=== PATIENT | male | born 1960 | race Caucasian/White ===

== ENCOUNTER 2016-09-22 09:12 | Emergency (ER) | payer OTHER ==
[~2016-09-22] VITALS: Ht 175.3 cm; Wt 114.3 kg
--- NOTE | ~2016-09-22 | EKG ---
[place] [address] [address] [facility] [place] [address] ELECTROCARDIOGRAM REPORT Name: GOAMAYA D [id number] Admission: 09/22/16 Attend Phys: Discharge: 09/22/16 Date of : 60 Report #: [id number] THIS REPORT FOR: //name// [facility] ED Test Date: 2016-09-22 Test Time: 09:42:30 Pat Name: AMAYA STILES Department: Room: Gender: Financial Aid Counselor: Deangelo HOBSON : 1960 Requested By: Sami Kemp Order Number: [id number] MD: Adrian Giles Measurements Intervals [place] Rate: 81 P: 17 [place]: 167 QRS: -45 QRSD: 127 T: 102 QT: 392 QTc: 455 Interpretive Statements Sinus rhythm LVH with IVCD, LAD and secondary repol abnrm No previous ECG available for comparison Electronically Signed On 09-24-2016 8:44:39 CDT by Adrian Giles [email or web address] <ELECTRONICALLY SIGNED> By: Adrian Giles MD 09/24/16 0844 0942 09 Adrian Giles MD /DAGMAR
[~2016-09-22 09:12] MED LIST: ACETAMINOPHEN650 M5 PO; AMBIEN 10 MG TA10 MG PO; BACLOFEN 10 MG10 MG PO; BACTRIM DS TAB1 EACH PO; COLACE 100 MG100 MG PO; CRANBERRY 4001 EAC1 PO; DANTRIUM25 M1 PO; DIOVAN40 MG PO; DOXYCYCLINE 10100 MG PO; ELEMENTAL CALC600 MG PO; FLEXERIL PO; LEVOTHYROXINE0.05 MG PO; LYRICA200 MG PO; METAXALONE800 MG PO; MIRALAX17 GM PO; MIRALAX255 GM PO; MYLANTA 12 OZ355 M1 PO; NEURONTIN 300300 M1 PO; NORCO 5-325 TA1 EACH PO; OMEPRAZOLE 20 M20 MG PO; RANITIDINE 150150 M1 PO; SKELAXIN 800 M800 M1 PO; TRAZODONE 150150 M1 PO
[2016-09-22 10:08] LABS: BASOPHILS 0.9 % (0.0-2.0); EOSINOPHILS 7.9 % (0.0-3.0); HEMATOCRIT 43.9 % (42.0-52.0); LYMPHOCYTES 15.7 % (24.0-44.0); MCH 29.5 pg (26.0-34.0); MCHC 34.2 g/dL (28.0-37.0); MCV 86.1 fL (80.0-100.0); MONOCYTES 7.1 % (1.0-8.0); PLATELET COUNT 216 thou/uL (150-400); POLYS 68.4 % (36.0-66.0); RDW 15.1 % (10.5-14.5); WBC 10.3 thou/uL (4.0-11.0)
[2016-09-22 10:14] LABS: MANUAL DIFF NO
[2016-09-22 10:54] LABS: ANION GAP 11 mmol/L (7-16); BUN 10 mg/dL (7-18); CALCIUM 8.6 mg/dL (8.5-10.1); CHLORIDE 104 mmol/L (98-107); CO2 24 mmol/L (21-32); GLUCOSE 123 mg/dL (74-106); POTASSIUM 3.8 mmol/L (3.5-5.1); SODIUM 139 mmol/L (136-145)
[2016-09-22 11:05] LABS: ALBUMIN 3.5 g/dL (3.4-5.0); ALKALINE PHOSPHATASE 51 U/L (46-116); DIRECT BILIRUBIN 0.1 mg/dL (<0.1-0.3); NT-PRO BRAIN NAT PEPTIDE 184 pg/mL (<300); SGOT 32 U/L (15-37); SGPT 39 U/L (30-65); TOTAL BILIRUBIN 0.7 mg/dL (<0.1-1.0); TOTAL PROTEIN 7.6 g/dL (6.4-8.2); TROPONIN-I < 0.04 ng/mL (<0.04-0.07)
[2016-09-22] MEDS ORDERED: LEVAQUIN 750 M750 MG PO (11:33)
[2016-09-22 11:46] VITALS: BP 130/91
== END 2016-09-22 11:48 | disposition home or self-care (01) ==
LOC: ER 09:12
PROVIDERS: Nurse Practitioner
DX: J18.9 Pneumonia, unspecified organism (principal); Z88.5 Allergy status to narcotic agent

== ENCOUNTER → 2017-02-18 | Outpatient (CLI) | payer OTHER ==
[~2017-02-18] MED LIST changes: +LEVAQUIN 750 M750 MG PO
== END ==
LOC: ULTRA 07:29
DX: K80.80 Other cholelithiasis without obstruction (principal); R16.2 Hepatomegaly with splenomegaly, not elsewhere classified; R60.9 Edema, unspecified

== ENCOUNTER → 2017-08-15 | Outpatient (CLI) | payer OTHER | LOC: ULTRA 06:24 | DX: K76.0 Fatty (change of) liver, not elsewhere classified (principal) ==

== ENCOUNTER → 2018-02-27 | Outpatient (CLI) | payer OTHER | LOC: ULTRA 12:21 | DX: K74.60 Unspecified cirrhosis of liver (principal); N20.0 Calculus of kidney; Z90.49 Acquired absence of other specified parts of digestive tract ==

== ENCOUNTER → 2018-07-09 | Outpatient (CLI) | payer OTHER | LOC: ULTRA 13:09 | DX: K76.0 Fatty (change of) liver, not elsewhere classified (principal); K74.60 Unspecified cirrhosis of liver; N20.0 Calculus of kidney; Z90.49 Acquired absence of other specified parts of digestive tract ==

== ENCOUNTER → 2019-01-21 | Outpatient (CLI) | payer OTHER | LOC: ULTRA 12:58 | DX: K74.60 Unspecified cirrhosis of liver (principal); Z90.49 Acquired absence of other specified parts of digestive tract ==

== ENCOUNTER 2019-09-24 05:18 | Inpatient (IN) | payer OTHER ==
[~2019-09-24] VITALS: Ht 172.7 cm; Wt 131.1 kg
[2019-09-24] VITALS (22 sets, daily range): BP systolic 85–115; BP diastolic 49–75
[~2019-09-24 05:18] MED LIST changes: -BACLOFEN 10 MG10 MG PO; +LIORESAL 10 MG10 MG PO
[2019-09-24] MEDS ORDERED: LYRICA300 MG PO (05:53)
[2019-09-24] MEDS ORDERED: COZAAR 25 MG TA25 MG PO (05:54)
[2019-09-24 05:55] LABS: HEMATOCRIT 45.5 % (42.0-52.0); HEMOGLOBIN 15.1 gm/dL (14.0-18.0); MCHC 33.1 g/dL (28.0-37.0); MCV 84.5 fL (80.0-100.0); PLATELET COUNT 242 thou/uL (150-400); RBC 5.38 mil/uL (4.50-6.00); RDW 15.7 % (10.5-14.5); WBC 7.1 thou/uL (4.0-11.0)
[2019-09-24] MEDS ORDERED: OMEPRAZOLE40 MG PO (05:55)
[2019-09-24] MEDS ORDERED: SPIRONOLACTONE50 MG PO (05:56)
[2019-09-24] MEDS ORDERED: METHOCARBAMOL750 MG PO (05:57)
[2019-09-24] MEDS ORDERED: CIPROFLOXACIN PO (05:58)
[2019-09-24] MEDS ORDERED: CALCIUM500 MG PO (06:01)
[2019-09-24] MEDS ORDERED: cranberry supplement PO (06:02)
[2019-09-24 06:04] LABS: CALCIUM 9.1 mg/dL (8.5-10.1); CREATININE 1.8 mg/dL (0.7-1.3); POTASSIUM 4.3 mmol/L (3.5-5.1)
[2019-09-24] MEDS ORDERED: ALEVE220 M1 PO (06:05)
[2019-09-24] MEDS ORDERED: CIALIS20 MG PO (06:05)
[2019-09-24 06:10] LABS: ALBUMIN 3.8 g/dL (3.4-5.0); DIRECT BILIRUBIN 0.2 mg/dL (<0.1-0.2); TOTAL BILIRUBIN 1.2 mg/dL (<0.1-1.0); TOTAL PROTEIN 8.1 g/dL (6.4-8.2)
[2019-09-24 07:36] LABS: ABSOLUTE NEUTROPHILS 4.3 thou/uL (1.4-8.2); PLATELET ESTIMATE NORMAL
[2019-09-24 08:02] LABS: ICTOTEST (BILI CONFIRMATORY) Negative (Negative); URINE BILIRUBIN 1+ (Negative); URINE BLOOD 3+ (Negative); URINE CLARITY CLOUDY; URINE COLOR YELLOW; URINE GLUCOSE-RANDOM* 3+ (Negative); URINE KETONES TRACE (Negative); URINE LEUKOCYTES-REFLEX 2+ (Negative); URINE NITRITE-REFLEX NEGATIVE (Negative); URINE PROTEIN (DIPSTICK) 2+ (Negative); URINE SPECIFIC GRAVITY >= 1.030 (1.005-1.035); URINE UROBILINOGEN 0.2 E.U./dl (0.2-1.0)
[2019-09-24 08:06] LABS: SQUAMOUS 0-3 Few /LPF (0-3)
[2019-09-24 08:07] LABS: BACTERIA-REFLEX >30 Many /HPF (None Seen); CRYSTALS None Seen /LPF (None Seen); URINE RBC >20 Many /HPF (0-2); URINE WBC-REFLEX >25 Many /HPF (0-5); YEAST-REFLEX Present (None Seen)
[2019-09-24 10:12] LABS: CALCIUM 9.2 mg/dL (8.5-10.1); CREATININE 1.8 mg/dL (0.7-1.3); POTASSIUM 4.4 mmol/L (3.5-5.1)
[2019-09-24 10:16] LABS: ALBUMIN 3.8 g/dL (3.4-5.0); PHOSPHORUS 4.1 mg/dL (2.5-4.9)
--- NOTE | 2019-09-24 13:47 | NUR ---
WOUND CONSULT; REVIEWED THE PICTURES RELATED TO THE PATIENTS CONDITION. BILATERAL BUTTOCKS AREAS LOOK FRAGIALLY HEALED. NO S/S OF INFECTION. RECOMMENDATIONS; BARRIER CREAM DAILY/PRN Q2H TURNS
--- NOTE | 2019-09-24 15:26 | NUR ---
ASSUMED CARE @ 1145 09/24/19, PT ARRIVED ON THE UNIT WITH THE ASSIST OF 1 RN AND 1 STATIONARY ENGINEER REFRIGERATION. PT ARRIVED WITH ZOSYN AND AND INSULIN GTT INFUSING. ASSESSMENTS AND VSS COMPLETE PER ICU PROTOCOL AND DOCUMENTED. DR SEAY HERE TO GALE RN SEEKS CLARIFICATION ON IF HE WANTS ME TO FOLLOW COMPLETE DKA PROTOCOL, HE RELAYS THAT HE IS A MILDER CASE OF DKA AND THAT WE SHOULD DO A MODIFIED PRT WITH Q4H BMP CHECKS BUT HE DID MENTION TO FOLLOW THE FLUID REPLACEMENT PER PRT BUT AT A RATE OF 125ML/HR. THIS RECCOMENDATIONS WERE RELAYED TO DR EMERY. DR HILL ROSALES, HE COMMUNICATES TO MAKE OT NPO AND REST BOWEL. PT EXPRESSES THAT HE WOULD LIKE TO TAKE HIS LYRICA AND METHOCARMABOL, I EXPLAINED TO PT THAT THESE CANNONT BE GIVEN IV, THIS IS RELAYED TO DR EMERY AGAIN, DR EMERY ORDERS VALIUM 2MG BID.
[2019-09-24 18:46] LABS: CALCIUM 7.4 mg/dL (8.5-10.1); POTASSIUM 4.3 mmol/L (3.5-5.1)
--- NOTE | 2019-09-24 22:02 | NUR ---
ASSUMED CARE OF PATIENT AT 1899. PT REMOVED IV. IV REPLACED. 2129 NO URINE OUTPUT SO FAR, CMM PROGRAMMER NOTIFIED, ORDER OBTAINED FOR CATHETER FOR STRICT I&O. GUSTAFSON PLACED WITH NO ISSUES, 200 ML OUT. WILL CONTINUE TO MONITOR OUTPUT HOURLY.
[2019-09-25] VITALS (10 sets, daily range): BP systolic 101–141; BP diastolic 55–88
[2019-09-25 04:07] LABS: GLYCOHEMOGLOBIN (HGB A1C) 10.6 % (4.8-5.6)
[2019-09-25 04:15] LABS: ALBUMIN 2.6 g/dL (3.4-5.0); CALCIUM 7.5 mg/dL (8.5-10.1); CREATININE 0.9 mg/dL (0.7-1.3); POTASSIUM 3.9 mmol/L (3.5-5.1)
--- NOTE | 2019-09-25 07:23 | NUR ---
Assumed care at 0700. PT is alert and oriented x4. Physical assessment was performed see chart for further details. VSS. PT denies any pain or nausea. PT requested to get a bath today "before they send me somewhere else." RN verbalized understanding and stated that would be accomplished today. High fall risk precautions are in place. Call light is wihtin reach. RN will continue to monitor.
--- NOTE | 2019-09-25 10:05 | NUR ---
PT worked with OT and physical therapy. After they left the room PT called RN to bedside and stated, "they made me sit up in this chair. I guess they think they know more about what is better for my ass than me." RN educated PT on the provider's order for activity and the importance of changing positions, exercising, and getting out of bed. PT verbalized understanding but stated, "my ass hurts, thats why I've been in bed for two months." PT refused to stay sitting in the chair so RN assisted PT back to bed. Fall precautions in place. PT tolerated activity well and was placed in bed then repositioned onto his left side. Call light is within reach. Will continue to monitor.
--- NOTE | 2019-09-25 10:22 | HC ---
[facility] [address] [place] [address] CONSULTATION Name: AMAYA STILES Room #: 244-P [facility] IN ..#: [id number] Admission: 09/24/19 Attend Phys: Bere Edmond MD Discharge: Date of : 60 Report #: [id number] THIS REPORT FOR: cc: [facility] - Clinic physician unknown [facility] - Clinic physician unknown Jameson Cervantes MD ~ CC: Bere RODRIGUEZ unknown DATE OF SERVICE: 09/24/2019 ENDOCRINE CONSULTATION NOTE CONSULTING PHYSICIAN: Dr. Edmond. REASON FOR CONSULTATION: DKA, uncontrolled type 2 diabetes mellitus. 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 The patient had issues in the past with small-bowel obstruction and recalls having had major small bowel and large bowel resection surgeries done in the past for this purpose. He notes that about 48 hours prior to his presentation, he started developing abdominal discomfort, abdominal distention as well as bouts of nausea and vomiting. On arrival, the patient was found to have severe hyperglycemia and changes of DKA and was subsequently admitted for further care and monitoring. The patient notes that he was first diagnosed with type 2 diabetes mellitus in 2003 shortly after his accident where his bedridden state and progressive weight gain had eventually culminated in type 2 diabetes mellitus. However, he notes that a bariatric procedure done in 2011 essentially cured diabetes and he has never needed to be on treatment since then. He believes that his hemoglobin A1c is checked annually or semiannually and that his last few readings were in the 5 range. Again, he is not actively on any form of blood glucose lowering therapy. The patient knows that he has been more immobile than usual due to active difficulties with decubitus ulcers and that he has been sleeping far longer than he would normally during these 2 months. The patient does not have any blood glucose data as he does not monitor blood glucose at home. The patient is not aware of issues pertaining to diabetic retinopathy, nephropathy or neuropathy, but he does have peripheral neuropathy issues pertaining to his spinal injury and paraplegia. REVIEW OF SYSTEMS: [address] [address] CONSULTATION Name: AMAYA STILES Benjie Room #: 244-P [facility] IN ..#: [id number] Admission: 09/24/19 Attend Phys: Bere Edmond MD Discharge: Date of : 60 Report #: [id number] CONSTITUTIONAL: Fatigue, tiredness, but not fever or chills. HEENT: Negative for sore throat, sinus pain or ear drainage. PULMONARY: Negative for shortness of breath, cough or hemoptysis. CARDIAC: Negative for chest pain, palpitations, syncope or presyncope. GASTROINTESTINAL: Noted for abdominal distention, abdominal discomfort, nausea, vomiting. NEUROLOGY: Baseline difficulties with neuropathy and paraplegia, but no seizure activity or severe frequent headaches. SKIN: Active ongoing issues with sacral decubitus ulcers. Otherwise, his review of systems noncontributory unless mentioned in HPI. PAST MEDICAL HISTORY: 1. Type 2 diabetes mellitus as outlined in HPI. 2. Hypertension. 3. GERD. 4. Obesity. 5. Peripheral neuropathy. 6. Obstructive sleep apnea. 7. Paraplegia following a horse riding accident in 2003. 8. Prior multiple issues with a small-bowel obstruction. 9. Hypothyroidism. PAST SURGICAL HISTORY: 1. Previous bowel resection. 2. Laparoscopic cholecystectomy. 3. Appendectomy. 4. Gastric bypass procedure. OUTPATIENT MEDICATIONS: 1. Include levothyroxine 50 mcg daily. 2. Baclofen 100 mg t.i.d. 3. Trazodone at bedtime. 4. Lyrica 300 mg t.i.d. 5. Losartan 25 mg b.i.d. 6. Omeprazole 1 capsule b.i.d. 7. Spironolactone 50 mg b.i.d. 8. Methocarbamol 750 mg t.i.d. 9. Calcium carbonate daily. 10. Cialis 20 mg daily. FAMILY HISTORY: Noncontributory. SOCIAL HISTORY: The patient lives by himself, but describes a close relationship with his girlfriend who checks on him as well as having home health services. He is disabled and does not currently work. He has never been a smoker and drinks alcohol only rarely. [address] [address] CONSULTATION Name: AMAYA STILES Room #: 244-P [facility] IN ..#: [id number] Admission: 09/24/19 Attend Phys: Bere Edmond MD Discharge: Date of : 60 Report #: [id number] ALLERGIES: MORPHINE. PHYSICAL EXAMINATION: GENERAL: male patient who is not in apparent pain or distress, lying in bed. VITAL SIGNS: Blood pressure 115/70 mmHg, heart rate is 93 beats per minute, respiration 18 per minute, temperature is 36.4 degrees. CONSTITUTIONAL: The patient is lying in bed, seems comfortable, not in apparent distress. HEENT: Anicteric sclerae. Intact extraocular motions. NECK: Supple, without JVD, carotid bruits or lymphadenopathy. I do not appreciate thyromegaly. CHEST: Noted for moderate air entry bilaterally with distant breath sounds, scattered rales, but no wheezes or crackles. HEART: Regular rate and rhythm. No murmurs, no gallops. ABDOMEN: Obese, but soft, lax. No guarding. Sluggish bowel sounds. EXTREMITIES: Lower extremity exam, trace edema. Diminished sensation. Faint pedal pulses. NEUROLOGIC: Awake, alert and oriented to time, place and person. The remainder of his examination is noted for paraplegia. PSYCHIATRIC: Interactive. Normal mood and affect. LABORATORY RESULTS: On arrival, blood glucose was 325 then 310 by fingerstick. Sodium 131, potassium 4.4, chloride 94, CO2 19, anion gap 18, BUN 25, creatinine 1.8, glucose by blood draw was as high as 487, AST 25, lipase 13, total bilirubin 1.2, direct bilirubin 0.2, calcium 9.2, phosphorus 4.1, alkaline phosphatase 64, ALT 35, total protein 8.1, albumin 3.8, EGFR 39. Lactic acid 1.8. Troponin negative. White blood count 7.1, hemoglobin 15.1, hematocrit 45.5, platelets 242. ASSESSMENT AND PLAN: 1. Diabetic ketoacidosis. The patient presents with changes that are consistent with early diabetic ketoacidosis judging by his presentation, as well as his metabolic abnormalities. The patient was counseled at length about the pathogenesis of the situation as well as the importance of early effective intervention with intravenous fluids as well as intravenous insulin. I will start the patient on IV insulin therapy as per the [facility] DKA protocol. Blood glucose monitoring hourly as well as periodic electrolyte monitoring will continue so as to guide further therapeutic decisions including when it would be suitable to transition the patient back to subcutaneous therapy and/or oral therapy for diabetes mellitus. 2. Type 2 diabetes mellitus. As noted above, the patient has a longstanding history of type 2 diabetes mellitus, which has reportedly resolved following his gastric bypass surgery several years ago. However, there does not seem to be adequate data to fully establish this notion of resolution. I will check a [facility] [address] [place] [address] CONSULTATION Name: AMAYA STILES Room #: 244-P [facility] IN ..#: [id number] Admission: 09/24/19 Attend Phys: Bere Edmond MD Discharge: Date of : 60 Report #: [id number] hemoglobin A1c to get a better assessment for his overall level of control over the past few months. His therapeutic needs following the conclusion of DKA therapy will be determined based on his clinical outlook as well as recorded insulin needs later in his hospital stay. I stressed the importance of adequate glycemic control in the prevention of long-term diabetic complications which he understands well. 3. Hypothyroidism. The patient is known to have hypothyroidism and is maintained on levothyroxine 50 mcg daily. He is clinically euthyroid. I will obtain TSH and free T4 levels to further ascertain the adequacy of this dose. 4. Hypertension. The patient's level of blood pressure control is adequate on the current regimen, he is to continue with the same. I certainly appreciate this consultation by Dr. Edmond. <ELECTRONICALLY SIGNED> By: Jameson Cervantes MD 09/25/19 1022 1319 1419 Jameson Cervantes MD /nt
--- NOTE | 2019-09-25 14:11 | NUR ---
INITIAL ASSESSMENT: Received consult. GREGORIO reviewed chart and spoke with attending physician. Pt was admitted from home due to DKA/SBO. Pt is in ICU and may transfer out of ICU when a bed is available. Pt with hx of paraplegia and is w/c bound at home. Pt is NPO per surgery at this time. SBFT today. No plans for surgical intervention. GREGORIO spoke with pt via phone. Introduced role of GREGORIO. Pt is alert/orientated x 4. Pt states he lives at home with his girlfriend, Brisa. Prior to admission, pt was receiving in home services through [facility]. Pt states he goes to [facility] for his primary care. Pt's plan is to return home when medically stable. Pt states his family will be able to provide transportation home. GREGORIO placed call to Brisa ([phone]). Number is not in service. GREGORIO spoke with pt's dtr, Lacey, via phone to provide update. GREGORIO left voice message for [facility] ([phone]). GREGORIO is following to assist as needed with discharge planning.
--- NOTE | 2019-09-25 14:59 | NUR ---
RN gave report to another RN on at 1445. She verbalized understanding PT was notified of transfer and was agreeable. RN also notified the x-ray clinicians as PT is currently doing a small bowel series. They stated understanding. High fall precautions are in place. Will continue to monitor.
--- NOTE | 2019-09-25 18:00 | NUR ---
ARRIVED ON FLOOR AROUND 1700 FROM ICU. PT ALERT AND ORIENTED. SITTING IN HIS WHEELCHAIR. ONLY C/O BEING THIRSTY. PT NPO. GUSTAFSON DRAINING. HAVING BMS. PIV INFUSING WITHOUT PROBLEMS. PAGED DR ALEJANDRE RE: LAST ABDOMINAL XRAY BEING DONE AND PT REQUESTING ICE CHIPS. WILL AWAIT FURTHER ORDERS. CONTINUE TO MONITOR
--- NOTE | 2019-09-26 02:53 | NUR ---
patient aox4 makes needs known. pain controlled this shift. patient turned q 2 hours. patient did not have any bowel movement this shift. cath care done this shift. barrier cream applied as needed. patient in bed asleep at this time breathing regular and unlaboured.
[2019-09-26 03:32] VITALS: BP 123/66
[2019-09-26 05:25] LABS: ALBUMIN 2.8 g/dL (3.4-5.0); CALCIUM 7.6 mg/dL (8.5-10.1); PHOSPHORUS 2.9 mg/dL (2.5-4.9); POTASSIUM 3.3 mmol/L (3.5-5.1)
[2019-09-26 07:21] VITALS: BP 115/60
--- NOTE | 2019-09-26 12:11 | NUR ---
Received awake on bed. Due medications given as prescribed, able to swallow meds w/o difficulty. On room air. Vital signs stable. On clear liquids then may advance to full liquids once tolerating well; no nausea, no vomiting and no abdominal pain noted. A+Ox4. On blood sugar monitoring- taken and recorded accordingly; with sliding scale insulin ordered- given as prescribed. With pro in place- draining well; output measured and recorded. With sore on his buttocks- barrier cream applied as ordered; pt turned on his sides frequently. With NS at 75cc/hr, infusing well at R AC. Assisted in ADLs. Pt asked if ok to resume home meds- Dr Edmond informed and orders made. Noticed pt had red rashes from his chest to his legs, no complaints of itchiness- Dr Edmond informed and skin assessed by physician- no new orders made- to observe skin. Pt very keen to go home tomorrow- physician aware; with verbal orders to discontinue IVF and restart Methocarbamol- orders made. To continue monitoring patient.
[2019-09-26 14:13] VITALS: BP 140/48; BP 1408/48
[2019-09-26 20:02] VITALS: BP 131/69
--- NOTE | 2019-09-27 02:47 | NUR ---
PATIENT AOX4 MAKES NEEDS KNOWN. PATIENT WOKE UP IN THE MIDDLE OF THE NIGHT TOLD THIS NURSE HE HAS BEEN HAVING WEIRD DREAMS. PAIN CONTROLLED THIS SHIFT. PATIENT TURNED Q 2 HOURS. PATIENT HAD A BED BATH THIS SHIFT.CATH CARE DONE THIS SHIFT. PATIENT IS ON FULL LIQUID AND TOLERATED WELL. FALL PRECAUTION IN PLACE. PATIENT IN BED ASLEEP AT THIS TIME BREATHING REGULAR AND UNLABOURED.
[2019-09-27 03:52] VITALS: BP 134/77
[2019-09-27 07:05] VITALS: BP 124/75
[2019-09-27 07:50] LABS: CALCIUM 8.1 mg/dL (8.5-10.1); CREATININE 0.9 mg/dL (0.7-1.3); PHOSPHORUS 2.9 mg/dL (2.5-4.9)
[2019-09-27] MEDS ORDERED: JANUMET 50-1,01 EACH PO (10:56)
[2019-09-27] MEDS ORDERED: [UNRECOGNIZED DRUG - SUPPLY] TOP (11:01)
[2019-09-27 11:18] VITALS: BP 124/75
--- NOTE | 2019-09-27 15:28 | NUR ---
Assumed patient care at 0715. Vital signs stable, LSCTA (diminished), Normal Sinus Rythym, abdomen somewhat distended (he denies pain and/or abdominal discomfort). Patient had a small, loose BM (time unknown); he consumed all of his Carb Controlled Lunch without any nausea and/or vomiting. Blood sugar was 112 at 0702 and 200 at 1152. He recieved 3 Units of Lispro per sliding scale. Patient verbalized an understanding to all Discharge Instructions before signing paperwork. Girlfriend met him outside. Patient left with all belongings and Discharge Paperwork at 1530. Pictures taken of wounds to buttocks which have almost completely healed.
== END 2019-09-27 15:55 | disposition home or self-care (01) | DRG 388 ==
LOC: ER 05:18 → 4W 10:05 → EROBS 10:05 → ICU 11:30 → 4W 09-25 17:20
PROVIDERS: Emergency Medicine; Internal Medicine; ADMIT Hospitalist
DX: K56.609 Unspecified intestinal obstruction, unspecified as to partial versus complete obstruction (principal); E11.10 Type 2 diabetes mellitus with ketoacidosis without coma; N39.0 Urinary tract infection, site not specified; N17.9 Acute kidney failure, unspecified; E87.1 Hypo-osmolality and hyponatremia; G82.20 Paraplegia, unspecified; Z68.41 Body mass index [BMI] 40.0-44.9, adult; E66.9 Obesity, unspecified; E03.9 Hypothyroidism, unspecified; I10 Essential (primary) hypertension; K21.9 Gastro-esophageal reflux disease without esophagitis; E11.42 Type 2 diabetes mellitus with diabetic polyneuropathy; N20.0 Calculus of kidney; G47.33 Obstructive sleep apnea (adult) (pediatric); Z79.4 Long term (current) use of insulin; Z88.5 Allergy status to narcotic agent; Z90.49 Acquired absence of other specified parts of digestive tract; Z98.84 Bariatric surgery status
CPT/HCPCS: 10045; 10047; 10078

== ENCOUNTER 2019-11-14 20:54 | Inpatient (IN) | payer OTHER ==
[~2019-11-14] VITALS: Ht 170.2 cm; Wt 128.7 kg
--- NOTE | ~2019-11-14 | EMS ---
[address] [address] EMS Patient Care Report Name: AMAYA STILES Room #: REG [facility]IER Painting#: [id number] Admission: 11/14/19 Attend Phys: Discharge: Date of : 60 Report #: [id number] THIS REPORT FOR: //name// Report Transmitted: 11/14/2019 20:47 EMS Care Summary [place], [place]/[facility] Incident [id number] @ 11/14/2019 19:53 Incident Location [address] [place] [address] 428 Patient AMAYA STILES Male, 59 Years 1960 Patient Address [address] [place] [address] [address] [place] [address] Patient History Diabetes,Hypertension (HTN),Urinary Tract Infection (UTI),Paraplegia, Patient Allergies No known allergies, Patient Medications Vitamin D, Calcium, Citrucel, Imodium, Vitamin B12, Tadalafil, Ropinirole, Levothyroxine, Losartan, Trazodone, Tamsulosin, Omeprazole, Methocarbamol, Spironolactone, Loratadine, Baclofen, Ibuprofen, Chief Complaint CONFUSION/FEVER Disposition Transported No Lights/Wolf Dispatch Reason Sick Person Transported To [facility] Narrative DISPATCHED TO A SICK. ARRIVED ON SCENE OF 4TH STORY APARTMENT TO BE GREETED BY [address] [address] EMS Patient Care Report Name: AMAYA STILES Room #: REG [facility] Painting#: [id number] Admission: 11/14/19 Attend Phys: Discharge: Date of : 60 Report #: [id number] PATIENT'S GIRLFRIEND WHO STATED THAT HE HAS A FEVER IS REALLY WARM TO THE TOUCH AND HAS BEEN MORE CONFUSED AND LETHARGIC TODAY THAN HE NORMALLY IS. SHE ALSO SAID THAT HE WAS ON ANTIBIOTICS FOR A RECENT UTI, BLADDER INFECTION, AND BOWEL IMPACTION THAT HE HAD BEEN IN THE HOSPITAL FOR. WHEN GREETED PATIENT IMMEDIATELY SAID THAT HE DID NOT WANT TO GO TO THE HOSPITAL BUT HE DID AGREE TO LET EMS CHECK HIS VITALS ON SCENE. PATIENT SAID THAT HE IS NOT HURTING ANYWHERE NEW AND HE DID NOT FEEL ILL. HIS VITALS WERE OBTAINED AND HE WAS FOUND TO BE IN A TACHYCARDIC RHYTHM AND HE WAS PLACED ON A 12 LEAD. WHEN ANSWERING QUESTIONS PATIENT SOMETIMES TOOK 2 OR THREE TIMES TO COME UP WITH THE CORRECT ANSWER. EMS TRIED TO CONVINCE PATIENT TO GO TO THE HOSPITAL AND WHEN HE STILL REFUSED MEDICAL CONTROL WAS CALLED. WHILE IN RADIO CONTACT WITH MEDICAL CONTROL PATIENT AGREED TO LET EMS BRING HIM TO THE HOSPITAL. HE WAS ROLLED ONTO A MEGAMOVER, LIFTED TO THE COT, SECURED WITH STRAPS, AND MOVED TO THE AMBULANCE. PATIENT'S VITALS WERE REOBTAINED AND HE WAS PLACED BACK ON THE MONITOR. ANOTHER 12 LEAD WAS OBTAINED DUE TO ARTIFACT IN THE PREVIOUS ONES. AN IV WAS STARTED. PATIENT'S LUNGS WERE AUCULTATED AND HE WAS ADMINISTERED NORMAL SALINE. PATIENT WAS PLACED ON OXYGEN AND HE WAS TRANSPORTED TO THE HOSPITAL WITH VITALS AND INTERVENTIONS MONITORED ENROUTE. PATIENT REMAINED CONFUSED ENROUTE BUT CONTINUED TO ANSWER QUESTIONS WHEN PROMPTED. UPON ARRIVAL AT THE HOSPITAL PATIENT WAS MOVED INTO ED ROOM 5 ON THE COT AND LIFTED OVER TO THE HOSPITAL BED. PATIENT CARE WAS TURNED OVER TO ED NURSING STAFF. Initial Vitals @20:13P: 60,SpO2: 93,CO Suspected: false @20:15P: 49,BP: 127/76,SpO2: 92, @20:17P: 125,CO: 5,SpO2: 76, @20:32P: 150,CO: 5,SpO2: 92, @20:16P: 192, @20:04P: 153,CO: 8,SpO2: 92, @20:28P: 143,CO: 3,SpO2: 94, @20:13P: 147,SpO2: 94, @20:14P: 65,CO: 7,SpO2: 92,CO Suspected: false @20:36P: 184,SpO2: 92,CO Suspected: false @20:45P: 152,CO: 5,SpO2: 92, @20:42P: 186,CO: 5,SpO2: 94, @20:35P: 116,SpO2: 80, @20:38P: 147,BP: 122/73,CO: 4,SpO2: 91, @20:05P: 151,R: 16,BP: 124/76,Pain: 0/10,GCS: 14,Glucose: 150,SpO2: 92,Revised Trauma: 12, @20:46P: 180,R: 16,BP: 141/86,Pain: 0/10,GCS: 14,Temp: 99.5F,SpO2: 92,Revised Trauma: 12, Assessments @20:03MENTAL:Confused,Person Oriented,Event Oriented,Time Oriented,Place Oriented,SKIN:Hot,HEENT:Head/Face: No Abnormalities,Neck/Airway: No Abnormalities,LUNG SOUNDS:General: No Abnormalities,Left Upper: No [facility] [address] [place] [address] EMS Patient Care Report Name: AMAYA STILES Room #: REG [facility]#: [id number] Admission: 11/14/19 Attend Phys: Discharge: Date of : 60 Report #: [id number] Abnormalities,Right Upper: No Abnormalities,Left Lower: No Abnormalities,Right Lower: No Abnormalities,ABDOMEN:General: No Abnormalities,Left Upper: No Abnormalities,Right Upper: No Abnormalities,Left Lower: No Abnormalities,Right Lower: No Abnormalities,PELVIS//GI:No Abnormalities,EXTREMITIES:Left Leg: Paralysis,Right Leg: Paralysis,Capillary Refill: Right Upper: < 2 Sec,Left Arm: No Abnormalities,Right Arm: No Abnormalities,PULSE:Radial: 2+ Normal,NEURO:No Abnormalities, Impression Sepsis/Septicemia Procedures @20:03ALS AssessmentResponse: UnchangedSucceeded@20:043-Lead ECGResponse: UnchangedSucceeded@20:38Normal Saline (.9% NaCl) 400cc (18 ga) Site: Antecubital-RightResponse: UnchangedSucceeded@20:1312-Lead ECG@20:1412-Lead ECG@20:3612-Lead ECG@20:40Oxygen FlowRate: 3 Device: Nasal Cannula (NC) Response: ImprovedSucceeded Timeline 19:49,Call Received 19:49,Dispatch Notified 19:53,Dispatched 19:54,En Route 20:00,On Scene 20:03,At Patient 20:03,ALS Assessment,Response: UnchangedSucceeded, 20:04,3-Lead ECG,Response: UnchangedSucceeded, 20:04,BP: / M,PULSE: 153,RR: R,SPO2: 92 Ox,ETCO2: ,BG: ,PAIN: ,GCS: , 20:05,BP: 124/76 M,PULSE: 151,RR: 16 R,SPO2: 92 Ox,ETCO2: ,B,PAIN: 0,GCS: 14, 20:13,12-Lead ECG, 20:13,BP: / M,PULSE: 60,RR: R,SPO2: 93 Ox,ETCO2: ,BG: ,PAIN: ,GCS: , 20:13,BP: / M,PULSE: 147,RR: R,SPO2: 94 Ox,ETCO2: ,BG: ,PAIN: ,GCS: , 20:14,12-Lead ECG, 20:14,BP: / M,PULSE: 65,RR: R,SPO2: 92 Ox,ETCO2: ,BG: ,PAIN: ,GCS: , 20:15,BP: 127/76 M,PULSE: 49,RR: R,SPO2: 92 Ox,ETCO2: ,BG: ,PAIN: ,GCS: , 20:16,BP: / M,PULSE: 192,RR: R,SPO2: Ox,ETCO2: ,BG: ,PAIN: ,GCS: , 20:17,BP: / M,PULSE: 125,RR: R,SPO2: 76 Ox,ETCO2: ,BG: ,PAIN: ,GCS: , 20:28,BP: / M,PULSE: 143,RR: R,SPO2: 94 Ox,ETCO2: ,BG: ,PAIN: ,GCS: , 20:32,BP: / M,PULSE: 150,RR: R,SPO2: 92 Ox,ETCO2: ,BG: ,PAIN: ,GCS: , 20:35,BP: / M,PULSE: 116,RR: R,SPO2: 80 Ox,ETCO2: ,BG: ,PAIN: ,GCS: , 20:36,12-Lead ECG, 20:36,BP: / M,PULSE: 184,RR: R,SPO2: 92 Ox,ETCO2: ,BG: ,PAIN: ,GCS: , 20:38,Normal Saline (.9% NaCl) 400cc 18 ga Site: Antecubital-Right,Response: UnchangedSucceeded, 20:38,BP: 122/73 M,PULSE: 147,RR: R,SPO2: 91 Ox,ETCO2: ,BG: ,PAIN: ,GCS: , [facility] [address] [place] [address] EMS Patient Care Report Name: AMAYA STILES Room #: [facility]#: [id number] Admission: 11/14/19 Attend Phys: Discharge: Date of : 60 Report #: [id number] 20:39,Depart Scene 20:40,Oxygen FlowRate: 3 Device: Nasal Cannula (NC) Response: ImprovedSucceeded, 20:42,BP: / M,PULSE: 186,RR: R,SPO2: 94 Ox,ETCO2: ,BG: ,PAIN: ,GCS: , 20:45,BP: / M,PULSE: 152,RR: R,SPO2: 92 Ox,ETCO2: ,BG: ,PAIN: ,GCS: , 20:46,BP: 141/86 M,PULSE: 180,RR: 16 R,SPO2: 92 Ox,ETCO2: ,BG: ,PAIN: 0,GCS: 14, 20:50,At Destination 21:16,Call Closed Disclaimer v1.1 Copyright 2020 [employer] This EMS Care Summary contains data elements from the applicable legal record (which may be displayed differently). It is designed to provide pertinent information for the following purposes: continuity of care, clinical quality, and state data reporting. The complete legal record is available to ED staff and administrators of the receiving hospital in [employer] Patient Tracker. All data is provided "as is."
[~2019-11-14 20:54] MED LIST changes: +ALEVE220 M1 PO; +CALCIUM500 MG PO; +CIALIS20 MG PO; +CIPROFLOXACIN PO; +COZAAR 25 MG TA25 MG PO; +JANUMET 50-1,01 EACH PO; +LYRICA300 MG PO; +METHOCARBAMOL750 MG PO; +OMEPRAZOLE40 MG PO; +SPIRONOLACTONE50 MG PO; +[UNRECOGNIZED DRUG - SUPPLY] TOP; +cranberry supplement PO
[2019-11-14 21:03] VITALS: BP 113/62
[2019-11-14 21:25] LABS: URINE BILIRUBIN NEGATIVE (Negative); URINE BLOOD 2+ (Negative); URINE CLARITY CLOUDY; URINE COLOR YELLOW; URINE GLUCOSE-RANDOM* NEGATIVE (Negative); URINE KETONES 1+ (Negative); URINE NITRITE-REFLEX NEGATIVE (Negative); URINE PROTEIN (DIPSTICK) 2+ (Negative); URINE SPECIFIC GRAVITY 1.025 (1.005-1.035); URINE UROBILINOGEN 0.2 E.U./dl (0.2-1.0)
[2019-11-14 21:33] LABS: URINE LEUKOCYTES-REFLEX 3+ (Negative)
[2019-11-14 21:35] LABS: CASTS None Seen /LPF (None Seen); MUCUS 0-3 Light strn/LPF (None Seen); SQUAMOUS None Seen /LPF (0-3)
[2019-11-14 21:36] LABS: BACTERIA-REFLEX 1-9 Few /HPF (None Seen); CRYSTALS None Seen /LPF (None Seen); URINE RBC 3-10 Few /HPF (0-2); URINE WBC-REFLEX >25 Many /HPF (0-5); YEAST-REFLEX Present (None Seen)
[2019-11-14 22:13] LABS: HEMATOCRIT 43.4 % (42.0-52.0); MCH 27.6 pg (26.0-34.0); MCHC 32.2 g/dL (28.0-37.0); MCV 85.7 fL (80.0-100.0); PLATELET COUNT 221 thou/uL (150-400); RBC 5.07 mil/uL (4.50-6.00); RDW 17.6 % (10.5-14.5); WBC 14.7 thou/uL (4.0-11.0)
[2019-11-14 22:40] LABS: ABSOLUTE NEUTROPHILS 12.1 thou/uL (1.4-8.2); ANISOCYTOSIS 1+
[2019-11-14 22:44] LABS: ANION GAP 13 mmol/L (7-16); BUN 22 mg/dL (7-18); CALCIUM 8.8 mg/dL (8.5-10.1); CHLORIDE 100 mmol/L (98-107); CO2 16 mmol/L (21-32); CREATININE 1.6 mg/dL (0.7-1.3); GLUCOSE 137 mg/dL (74-106); POTASSIUM 5.8 mmol/L (3.5-5.1); SODIUM 129 mmol/L (136-145)
[2019-11-14 22:54] LABS: ALBUMIN 3.1 g/dL (3.4-5.0); MAGNESIUM 1.3 mg/dL (1.8-2.4); SGOT 18 U/L (15-37); SGPT 23 U/L (30-65); TOTAL BILIRUBIN 0.8 mg/dL (0.2-1.0); TOTAL PROTEIN 7.8 g/dL (6.4-8.2); TROPONIN-I <0.06 ng/mL (<0.06)
--- NOTE | 2019-11-14 23:15 | NUR ---
[facility] [phone] CELL [phone] THIS IS DAUGHTER
--- NOTE | 2019-11-14 23:16 | NUR ---
PERMISSION TO TREAT OBTAINED FROM SOFIA LOYOLA
[2019-11-14 23:44] VITALS: BP 106/52
[2019-11-15] VITALS (35 sets, daily range): BP systolic 85–133; BP diastolic 30–83
[2019-11-15 01:35] LABS: BE(vivo) -12.3 mmol/L (-2 to +3); HCO3 12.1 mmol/L (22.0-26.0); PO2 101.7 mmHg (80.0-100.0); sO2 97.2 % (92.0-98.0)
[2019-11-15 01:36] LABS: PCO2 24.9 mmHg (35.0-45.0); pH 7.304 (7.360-7.450)
--- NOTE | 2019-11-15 04:04 | NUR ---
PT ADMITTED FROM ED FOR POSSIBLE SEPSIS. ARRIVE ON UNIT ABOUR 2300. PT AOX4 DENIES PAIN BUT DRIFTS INTO SLEEP AND ALSO IN RESPITORY DISTRESS. PT TACHYCARDIC SUSTAINING HR >140 AND FEVER OF 102.2 AXILLARY. RAPID ACTIVATE. TAPER OPERATOR ORDERED TO TANSFER PATIENT TO ICU.
[2019-11-15 05:33] LABS: BUN 18 mg/dL (7-18); CHLORIDE 110 mmol/L (98-107); CO2 16 mmol/L (21-32); CREATININE 1.7 mg/dL (0.7-1.3); GLUCOSE 103 mg/dL (74-106); TROPONIN-I <0.06 ng/mL (<0.06)
[2019-11-15 05:34] LABS: ANION GAP 20 mmol/L (7-16); POTASSIUM 3.3 mmol/L (3.5-5.1); SODIUM 146 mmol/L (136-145)
[2019-11-15 05:37] LABS: CALCIUM 5.6 mg/dL (8.5-10.1)
[2019-11-15 05:38] LABS: MAGNESIUM 0.8 mg/dL (1.8-2.4)
[2019-11-15 06:20] LABS: ALBUMIN 1.8 g/dL (3.4-5.0); DIRECT BILIRUBIN 0.1 mg/dL (<0.1-0.2); TOTAL BILIRUBIN 0.8 mg/dL (0.2-1.0); TOTAL PROTEIN 5.4 g/dL (6.4-8.2)
--- NOTE | 2019-11-15 06:51 | NUR ---
ASSUMED CARE OF PATIENT FROM . TACHYCARDIC, FEBRILE, AMS. Manjula LINDSAY ON UNIT, ORDERS RECIEVED. TYLENOL, FLUID BOLUS, ABX GIVEN. VITALS IMPROVED. PATIENT STILL CONFUSED AT TIMES. CRITICAL RESULTS CALLED.
[2019-11-15 07:21] LABS: AMP/METHAMP Negative (Negative); BARBITURATES Negative (Negative); BENZODIAZEPINES Negative (Negative); COCAINE Negative (Negative); METHADONE Negative (Negative); OPIATES Negative (Negative); PCP Negative (Negative)
--- NOTE | 2019-11-15 14:54 | NUR ---
VASCULAR ACCESS CONSULTED FOR PICC LINE. PT'S LABS,MEDS,HISTORY,ORDER AND CONSENT VERIFIED. UPON ASSESSMENT, PT UNABLE TO EXTEND ARMS TO USE USG TO FIND VESSELS. DISCUSSED CVAD WITH BENEFITS AND RISK TO PT, HE VERBALIZED UNDERSTANDING AND CONSENT FOT GIULIA. RIJ WIDELY PATENT WITH USG, 4FR DL POWER PICC TRIMMED TO 25CM INSERTED TO 7CM EXTERNAL. STAT CXR ORDERED. PT TOLERATED WELL
--- NOTE | 2019-11-15 14:58 | NUR ---
CXR CONFIRMED IJ PLACEMENT. RIJ RELEASED FOR IMMEDIATE USE PER PROTOCOL TO MANUEL ASCENCIO
[2019-11-15 17:20] LABS: HEMATOCRIT 37.6 % (42.0-52.0); HEMOGLOBIN 12.4 gm/dL (14.0-18.0); MCH 27.9 pg (26.0-34.0); MCHC 32.9 g/dL (28.0-37.0); MCV 84.7 fL (80.0-100.0); RBC 4.44 mil/uL (4.50-6.00); WBC 12.3 thou/uL (4.0-11.0)
[2019-11-15 17:35] LABS: ALBUMIN 2.4 g/dL (3.4-5.0); CREATININE 1.9 mg/dL (0.7-1.3); MAGNESIUM 2.3 mg/dL (1.8-2.4); TOTAL BILIRUBIN 0.5 mg/dL (0.2-1.0); TOTAL PROTEIN 6.3 g/dL (6.4-8.2)
[2019-11-15 17:39] LABS: CALCIUM 7.8 mg/dL (8.5-10.1); POTASSIUM 5.8 mmol/L (3.5-5.1)
[2019-11-15 19:07] LABS: BE(vivo) -7.9 mmol/L (-2 to +3); PO2 80.4 mmHg (80.0-100.0); sO2 95.3 % (92.0-98.0)
[2019-11-15 19:08] LABS: pH 7.329 (7.360-7.450)
--- NOTE | 2019-11-15 19:22 | NUR ---
ASSUMED PATIENT TUAN AT 0700. ALERT TO SELF, DRWOSY. LOW GRADE TEMP, BP ON LOW SIDE. STARTED INSULIN GTT AT 1700. COVID FIRST NEGATIVE. 2ND COVID SENT TO LAB. NOT TOWARDS POC GOALS.
[2019-11-16] VITALS (22 sets, daily range): BP systolic 88–125; BP diastolic 48–80
[2019-11-16 05:46] LABS: BE(vivo) -9.3 mmol/L (-2 to +3); HCO3 15.4 mmol/L (22.0-26.0); PCO2 30.2 mmHg (35.0-45.0); PO2 90.3 mmHg (80.0-100.0); pH 7.324 (7.360-7.450); sO2 96.5 % (92.0-98.0)
--- NOTE | 2019-11-16 06:21 | NUR ---
Pt remains tachycardic through the night with rates from 110's to 130's, BP has been within normal limits, and axillary temps have been elevated, pt is NPO and somewhat confused, so ice chips were offered sparingly, he was encouraged to cough/deep breathe and he grudgingly repositioned. He reported discomfort, especially to his left side. His lungs are diminished, a rare dry cough was noted, sats have been >96% He is on an insulin drip, currently infusing at 3.5 units/hr, with values from 117 to 169. Please note, if/when pt is out of bed for any testing, the bed needs to be changed out for maintenance. Pt was repositioned with pillows, as he allowed, and would benefit from rotation settings on the bed. The pt is making slow progress towards his POC.
[2019-11-16 06:28] LABS: HEMOGLOBIN 12.2 gm/dL (14.0-18.0); MCH 27.5 pg (26.0-34.0); MCHC 32.2 g/dL (28.0-37.0); MCV 85.6 fL (80.0-100.0); RBC 4.44 mil/uL (4.50-6.00); RDW 17.9 % (10.5-14.5); WBC 11.9 thou/uL (4.0-11.0)
[2019-11-16 06:39] LABS: CALCIUM 7.4 mg/dL (8.5-10.1); CREATININE 1.8 mg/dL (0.7-1.3); POTASSIUM 5.3 mmol/L (3.5-5.1)
--- NOTE | 2019-11-16 07:47 | EKG ---
[facility] [place] [address] ELECTROCARDIOGRAM REPORT Name: AMAYA STILES Room #: [facility]- ADM IN M.R.#: [id number] Admission: 11/14/19 Attend Phys: Ren Albarran MD Discharge: Date of : 60 Report #: [id number] THIS REPORT FOR: cc: [facility] - Clinic physician unknown [facility] - Clinic physician unknown Alex Saldivar MD [facility] THIS REPORT FOR: //name// [facility] ED Test Date: 2019-11-14 Test Time: 23:42:12 Pat Name: AMAYA STILES Department: Room: [facility] Gender: M 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: STOLED : 1960 Requested By: Rasheed Chavez Order Number: [id number] MD: Alex Saldivar Measurements Intervals [place] Rate: 138 P: 43 WA: 131 QRS: -46 QRSD: 117 T: 129 QT: 286 QTc: 434 Interpretive Statements Sinus tachycardia Leftward axis Incomplete left bundle branch block Compared to ECG 09/22/2016 09:42:30 No significant change was found Electronically Signed On 11-16-2019 7:47:35 CDT by Alex Saldivar [email or web address] <ELECTRONICALLY SIGNED> By: Alex Saldivar MD, [facility] 11/16/19 0747 [id number] Alex Saldivar MD, [facility] /EPI
--- NOTE | 2019-11-16 08:00 | EKG ---
[facility] [place] [address] ELECTROCARDIOGRAM REPORT Name: AMAYA STILES Room #: 241-P ADM IN M.R.#: [id number] Admission: 11/14/19 Attend Phys: Ren Albarran MD Discharge: Date of : 60 Report #: [id number] THIS REPORT FOR: cc: [facility] - Clinic physician unknown [facility] - Clinic physician unknown Alex Saldivar MD [facility] THIS REPORT FOR: //name// [facility] Test Date: 2019-11-15 Test Time: 02:19:50 Pat Name: AMAYA STILES Department: Room: [facility] Gender: M Java Consultant: WILLIE : 1960 Requested By: Ysabel Valdes Order Number: [id number] MD: Alex Saldivar Measurements Intervals [place] Rate: 148 P: 34 VT: 125 QRS: -50 QRSD: 120 T: 136 QT: 281 QTc: 442 Interpretive Statements Sinus tachycardia Incomplete left bundle branch block Leftward axis Baseline wander in lead(s) I,II,aVR,aVL,aVF,V2 Compared to ECG 11/14/2019 23:42:12 No significant changes Electronically Signed On 11-16-2019 8:00:18 CDT by Alex Saldivar [email or web address] <ELECTRONICALLY SIGNED> By: Alex Saldivar MD, [facility] 11/16/19799 8 8 Alex Saldivar MD, [facility] /EPI
--- NOTE | 2019-11-16 08:01 | EKG ---
[facility] [place] [address] ELECTROCARDIOGRAM REPORT Name: AMAYA STILES Room #: 241-P ADM IN M.R.#: [id number] Admission: 11/14/19 Attend Phys: Ren Albarran MD Discharge: Date of : 60 Report #: [id number] THIS REPORT FOR: cc: [facility] - Clinic physician unknown [facility] - Clinic physician unknown Alex Saldivar MD [facility] THIS REPORT FOR: //name// [facility] Test Date: 2019-11-15 Test Time: 02:20:32 Pat Name: AMAYA STILES Department: Room: 241 Gender: M Ic Designer Custom: JCJLUIS : 1960 Requested By: Ren Albarran Order Number: [id number] MD: Alex Saldivar Measurements Intervals [place] Rate: 145 P: 36 TN: 134 QRS: -50 QRSD: 115 T: 134 QT: 273 QTc: 424 Interpretive Statements Sinus tachycardia Incomplete left bundle branch block Leftward axis Baseline wander in lead(s) I,II,aVR Compared to ECG 11/15/2019 02:19:50 No significant change was found Electronically Signed On 11-16-2019 8:00:57 CDT by Alex Saldivar [email or web address] <ELECTRONICALLY SIGNED> By: Aelx Saldivar MD, [facility] 11/16/19799 9 9 Alex Saldivar MD, [facility] /EPI
--- NOTE | 2019-11-16 10:28 | HC ---
[facility] [address] [place] [address] CONSULTATION Name: AMAYA STILES Benjie Room #: [facility] ..#: [id number] Admission: 11/14/19 Attend Phys: Bere Edmond MD Discharge: Date of : 60 Report #: [id number] THIS REPORT FOR: cc: [facility] - Clinic physician unknown [facility] - Clinic physician unknown Jameson Cervantes MD ~ CC: [facility] unknown Ren Albarran DATE OF SERVICE: 11/15/2019 ENDOCRINE CONSULTATION NOTE CONSULTING PHYSICIAN: Dr. Albarran. REASON FOR CONSULTATION: DKA, type 2 diabetes mellitus. HISTORY OF PRESENT ILLNESS: This is a 59-year-old male patient whose medical background is significant for multiple medical issues including type 2 diabetes mellitus, hypothyroidism and paraplegia. The patient was admitted due to progressive issues with fatigue and tiredness as well as reported fever and chills. This occurred with a backdrop of a UTI that the patient has been battling for the past 2 weeks. The patient was admitted for further care and monitoring and is currently in the ICU for that purpose. When questioned about his history of type 2 diabetes mellitus, the patient insisted that he had not been diagnosed with diabetes mellitus until 3 weeks ago. He believes that he has taken an oral medicine for diabetes and I have seen Janumet mg b.i.d. on his medicine list. The patient acknowledges that he does not check his blood glucose whatsoever at home. The patient insists that he has not utilized any unusual medicines over the past few weeks and has not necessarily used juns-nsc-hobcwml Tylenol nor ingested alcohol for the few days preceding his presentation here. Also, the patient is known to have hypothyroidism and is maintained on levothyroxine 50 mcg daily. He is hypertensive and is maintained on losartan 25 mg p.o. b.i.d. REVIEW OF SYSTEMS: CONSTITUTIONAL: Fever, chills, progressive fatigue, tiredness. HEENT: Negative for sore throat, sinus pain or ear drainage. PULMONARY: Tachypnea, shortness of breath, intermittent cough, but no hemoptysis. CARDIAC: Occasional issues with palpitations, but not syncope, presyncope or chest pain. [facility] [address] [place] [address] CONSULTATION Name: AMAYA STILES Room #: 241-P [facility]#: [id number] Admission: 11/14/19 Attend Phys: Bere Edmond MD Discharge: Date of : 60 Report #: [id number] GASTROINTESTINAL: Negative for nausea, vomiting or changes in bowel movement frequency. NEUROLOGY: The patient is paraplegic at baseline, no frequent severe headaches. No seizure activity. PSYCHIATRIC: Negative for delusions, hallucinations. Otherwise, review of systems noncontributory unless mentioned in HPI. PAST MEDICAL HISTORY: 1. Type 2 diabetes mellitus. 2. Hypertension. 3. Hypothyroidism. 4. Paraplegia following back injury due to a fall in 2003. 5. History of kidney stones. 6. History of DVT. 7. GERD. 8. Obesity. 9. Recurrent bladder infections including a recent 1-2 weeks ago. 10. History of DKA. PAST SURGICAL HISTORY: Includes lap band surgery, cholecystectomy, appendectomy. OUTPATIENT MEDICATIONS: Include Janumet mg p.o. b.i.d., levothyroxine 50 mcg daily, losartan 25 mg b.i.d., baclofen 10 mg p.o. t.i.d., trazodone 50 mg at bedtime, Lyrica 300 mg p.o. t.i.d., omeprazole b.i.d., methocarbamol 750 mg t.i.d., calcium carbonate daily, Cialis 20 mg daily, naproxen 2 tabs at bedtime p.r.n. ALLERGIES: The patient allergic to MORPHINE. FAMILY HISTORY: Noncontributory. SOCIAL HISTORY: The patient denies use of tobacco or illicit drugs. Drinks alcohol only seldom. PHYSICAL EXAMINATION: GENERAL: male patient lying in bed, appears lethargic, tired, but not in apparent distress. VITAL SIGNS: Blood pressure is 91/65 mmHg, heart rate is 116 beats per minute, respirations 16 per minute, temperature 37.3 degrees Celsius. PSYCH: The patient is lying supine in bed. He appears lethargic, but not in apparent pain or distress. HEENT: Anicteric sclerae. Intact extraocular motions. He is wearing a nasal cannula. NECK: Supple, without JVD or thyromegaly. CHEST: Noted for moderate entry bilaterally with scattered rales, but no [address] [address] CONSULTATION Name: AMAYA STILES Room #: 241-P [facility].#: [id number] Admission: 11/14/19 Attend Phys: Bere Edmond MD Discharge: Date of : 60 Report #: [id number] rhonchi. HEART: Regular rate and rhythm without murmurs or gallops. ABDOMEN: Distended, but soft, lax. No guarding. Sluggish bowel sounds. EXTREMITIES: Lower extremity exam, trace edema. NEUROLOGIC: Awake, lethargic, arousable, seems a bit disoriented, paraplegic. PSYCHIATRIC: Flat mood and affect. Slow thought process. LABORATORY RESULTS: Blood glucose was recorded at 158 on arrival, then 114, then 120 and finally 123 mg/dL prior to the dictation of this note. Sodium 146, potassium 3.3, chloride 110, CO2 of 16, anion gap 20, on arrival last night was 13. BUN 18, creatinine 1.7. His baseline is anywhere from 0.9 to a high of 1.8, AST 13, lipase 130. Total bilirubin 0.8, direct bilirubin 0.1, calcium 5.6, phosphorus 2.9, magnesium 0.8, alkaline phosphatase is 28, ALT 14, total protein 5.4, albumin 1.8, EGFR 41. Lactic acid 1.1. Troponin is negative. Alcohol is negative. Free T4 of 1.3 in September 2019. Acetone was 0.35 in September 2019. White blood count 14.7, hemoglobin 14, hematocrit 43.4, platelets 221. Hemoglobin A1c in September 2019 was 10.6%. His testing for coronary bypass COVID-19 was negative so far. TSH 0.394. ASSESSMENT AND PLAN: 1. Diabetic ketoacidosis. Although, the patient has been normal glycemic for the most part, he does have a wide anion gap metabolic acidosis in the absence of other apparent causes of such an outlook including the absence of alcohol or lactic acidosis. It is feasible for him to have developed normal glycemic diabetic ketoacidosis, especially under conditions of sepsis, dehydration and severe stress. While the patient notes a mild diabetic outlook and a recent diagnosis, his hemoglobin A1c of 10.7% few months ago speaks to a different outlook and it is feasible that the patient might be insulin deficient at least relatively at baseline. Given this outlook, the utilization of intravenous insulin has to be considered. That said, I discussed the need to initiate intravenous insulin therapy with the nursing staff, but in view of normal glycemia, I stressed the need to initiate aggressive hydration with D5 based intravenous solutions at a rate of 150 mL an hour, so as to ensure that the patient does not develop hypoglycemia upon the initiation of insulin therapy. Once the intravenous dextrose solution has been initiated for 30 minutes or so, we will proceed with intravenous insulin therapy as per [facility] intravenous insulin protocol. Blood glucose monitoring will commence hourly and insulin therapy will be adjusted accordingly and I would like to obtain a CMP and ABG later tonight to assess his progress. 2. Type 2 diabetes mellitus. Uncontrolled at baseline with a debatable date of diagnosis. The patient's glycemic outlook on his current Janumet therapy is unknown as he does not monitor his blood glucose values, but is likely not ideal. The current outlook and the tendency for diabetic ketoacidosis now and then again just in September 2019 speaks to the need to include insulin in his outpatient therapy as well. This will be revisited and stratified further once the patient is clinically stable. [address] [address] CONSULTATION Name: AMAYA STILES Room #: 241-P [facility] IN M.R.#: [id number] Admission: 11/14/19 Attend Phys: Bere Edmond MD Discharge: Date of : 60 Report #: [id number] 3. Hypothyroidism. The patient is known to have hypothyroidism and is maintained on levothyroxine 50 mcg daily. His thyroid function indices were within satisfactory limits. I will have him continue the current dose. 4. Hypertension. The patient's level of blood pressure control is adequate. He is to continue with this as per the hospital medicine team. 5. Hypocalcemia. The patient seems to have hypocalcemia even when corrected for his significant hypoalbuminemia. To further assess this outlook, I will check ionized calcium and vitamin D levels. This might have to do with his significantly low magnesium of 0.8. I have reviewed the patient's clinical care notes, laboratory data and other pertinent clinical information past and present for over 35 minutes in addition to my encounter time with the patient. I certainly appreciate this consultation by Dr. Albarran. <ELECTRONICALLY SIGNED> By: Jameson Cervantes MD 11/16/19 1028 1333 1409 Jameson Cervantes MD /nt
--- NOTE | 2019-11-16 10:58 | NUR ---
PATIENT'S "FIANCE'" A COUPLE OF TIMES WHEN RN WAS IN ISOLATION. RN CALLED HER BACK AND UPDATED AND QNS ANSWERED. PATIENT IS DROWSY BUT EASILY AROUSABLE AND WHEN AWAKE IS ORIENTED TO PERSON AND PLACE. IRRITABLE AND MOANS AND REFUSES CARE. VITALS STABLE, ON INSULIN GTT AND LANDSCAPE CONTRACTOR STATED WILL MAKE CHANGES TO INTRODUCE LANTUS AND SWITCH TO SS INSULIN. WILL CONTINUE WITH POC.
--- NOTE | 2019-11-16 15:30 | NUR ---
chart review. cm unable to visit with pt rt resting with eyes closed. bedside nurse has provided sig other updates as she has been calling through out the day. noted per chart. pt been here in past. wheel chair bound. lives at home with sig other and has support from daughter as well. goes to [facility] for primary care appointments. will cont following as needed for dc needs.
[2019-11-17] VITALS (10 sets, daily range): BP systolic 58–150; BP diastolic 25–81
--- NOTE | 2019-11-17 05:07 | NUR ---
Pt. slept intermittently during the night in between cares. Tylenol given for pain with some relief. He has been repositioned for comfort q2 hrs and prn in between upon his request. Maintaining O2 sat in the upper 90's on 2L/NC. No respiratory distress. C/O constipation ,he does not remember when last bm was. He requested laxative. Dulcolax suppository given. He has been passing gas but no bm yet. Adequeate output from pro catheter. Max temp 99.7 orally at HS. Making progress towards care plan goals.
[2019-11-17 07:08] LABS: 25-HYDROXY TOTAL 21.9 ng/mL (30.0-100.0)
--- NOTE | 2019-11-17 07:37 | EKG ---
[facility] [place] [address] ELECTROCARDIOGRAM REPORT Name: AMAYA STILES Room #: 241-P ADM IN M.R.#: [id number] Admission: 11/14/19 Attend Phys: Bere Edmond MD Discharge: Date of : 60 Report #: [id number] THIS REPORT FOR: cc: [facility] - Clinic physician unknown [facility] - Clinic physician unknown Alex Saldivar MD [facility] THIS REPORT FOR: //name// [facility] Test Date: 2019-11-16 Test Time: 09:02:00 Pat Name: AMAYA STILES Department: Room: 241 Gender: M Chronic Condition Nurse: FILIPE : 1960 Requested By: Bere Edmond Order Number: [id number] MD: Alex Saldivar Measurements Intervals [place] Rate: 126 P: 144 ND: 150 QRS: 222 QRSD: 127 T: 57 QT: 302 QTc: 438 Interpretive Statements Lead reversal, recommend repeat tracing Sinus or ectopic atrial tachycardia Nonspecific intraventricular conduction delay Poor R wave progression Compared to ECG 11/15/2019 02:20:32 [place] has shifted Electronically Signed On 11-17-2019 7:37:36 CDT by Alex Saldivar [email or web address] <ELECTRONICALLY SIGNED> By: Alex Saldivar MD, [facility] 11/17/19 0737 1 1 Alex Saldivar MD, [facility] /EPI
--- NOTE | 2019-11-17 09:49 | 2DMMODE ---
[facility] [address] [place] [address] 2 D/M-MODE ECHOCARDIOGRAM Name: AMAYA STILES Benjie Room #: 241-P ADM IN M.R.#: [id number] Admission: 11/14/19 Attend Phys: Bere Edmond MD Discharge: Date of : 60 Report #: [id number] THIS REPORT FOR: cc: [facility] - Clinic physician unknown [facility] - Clinic physician unknown lAex Saldivar MD [facility] ~ APPROVED REPORT Study performed: 11/17/2019 08:46:42 EXAM: Comprehensive 2D, Doppler, and color-flow Echocardiogram Patient Location: ICU Room #: 241 Status: routine BSA: 2.34 HR: 125 bpm BP: 97/58 mmHg Rhythm: Tachycardia Other Information Study Quality: Fair Technically limited study due to obesity, no mobility. Indications CHF eval. Hx: Pacer/defib, paraplegia, DM, HTN, morbid obesity. 2D Dimensions RVDd: 32.43 mm IVSd: 13.17 (7-11mm) LVOT Diam: 25.50 (18-24mm) LVDd: 46.01 mm PWd: 13.26 (7-11mm) Ascending Ao: 38.38 (22-36mm) LVDs: 34.92 (25-40mm) Aortic Root: 37.56 mm Volumes Left Atrial Volume (Systole) Single Plane 4CH: 69.32 mL Single Plane 2CH: 72.56 mL LA ESV Index: 32.00 mL/m2 Aortic Valve AoV Peak Jayy.: 1.74 m/s AO Peak Gr.: 12.18 mmHg LVOT Max P.97 mmHg [facility] [address] [place] [address] 2 D/M-MODE ECHOCARDIOGRAM Name: AMYAA STILES Room #: 241-P [facility]#: [id number] Admission: 11/14/19 Attend Phys: Aldo Mcwilliams Discharge: Date of : 60 Report #: [id number] LVOT Max V: 1.32 m/s JEMAL Vmax: 3.86 cm2 Mitral Valve MV Decel. Time: 126.67 ms Pulmonary Valve PV Peak Jayy.: 1.86 m/s PV Peak Gr.: 13.84 mmHg Tricuspid Valve TR Peak Jayy.: 2.29 m/s RAP Estimate: 5.00 mmHg TR Peak Gr.: 21.00 mmHg PA Pressure: 26.00 mmHg Left Ventricle The left ventricle is normal size. Regional wall motion is not well visualized but grossly normal. Mild concentric left ventricular hypertrophy. The left ventricular systolic function is normal. The left ventricular ejection fraction is within the normal range. LVEF is 55%. This study is not technically sufficient to allow evaluation of the LV diastolic function. Right Ventricle The right ventricle is normal size. The right ventricular systolic function is normal. Device lead is present in the right ventricle. Atria Left atrium is at the upper limits of normal. The right atrium size is normal. Aortic Valve The aortic valve leaflets are not well visualized. No aortic regurgitation is noted. There is no aortic valvular stenosis. Mitral Valve The mitral valve is normal in structure. There is no mitral valve regurgitation noted. No evidence of mitral valve stenosis. Tricuspid Valve The tricuspid valve is normal in structure. Trace tricuspid regurgitation. Estimated PAP is 25-30mmHg. Pulmonic Valve Pulmonic valve is not well visualized. Great Vessels [facility] [address] [place] [address] 2 D/M-MODE ECHOCARDIOGRAM Name: AMAYA STILES Room #: 241-P [facility] IN M.R.#: [id number] Admission: 11/14/19 Attend Phys: Aldo Mcwilliams Discharge: Date of : 60 Report #: [id number] The aortic root and ascending aorta measure at the upper limits of normal. IVC is normal in size and collapses >50% with inspiration. Pericardium There is no pericardial effusion. <Conclusion> Technically difficult study The left ventricular systolic function is normal. Regional wall motion is not well visualized but grossly normal. LVEF is 55%. Pacing wires seen in the right heart The aortic valve leaflets are not well visualized. No aortic regurgitation or stenosis. The mitral valve is normal in structure. No mitral valve regurgitation. Trace tricuspid regurgitation. Estimated pulmonary artery pressure of 25-30mmHg. There is no pericardial effusion. <ELECTRONICALLY SIGNED> By: Alex Saldivar MD, [facility] 11/17/1948 7 7 Alex Saldivar MD, [facility] /INF
--- NOTE | 2019-11-17 11:22 | NUR ---
discussed during los, possible will be moved out of icu today.
--- NOTE | 2019-11-17 14:45 | NUR ---
Transfered via bed on room air to CCU. Report called to Bulmaro ASCENCIO. All belongings with pt.
--- NOTE | 2019-11-17 15:16 | NUR ---
TO UNIT BY BED FROM ICU AT 1445, REPORT FROM SILVA NGUYEN. ST PER TELE, DR. SHAFFER TO SEE. DENIES CP. INAPPROPRIATE SPEECH. VSS. FALL PRECAUTIONS INITIATED. WILL CONTINUE TO FOLLOW CLOSELY.
[2019-11-18] VITALS (7 sets, daily range): BP systolic 91–124; BP diastolic 45–72
--- NOTE | 2019-11-18 04:31 | NUR ---
ASSUMED PT CARE AT 1900. PT IS ALERT BUT DROWSY. UPON REPORT, IT WAS NOTED THAT PT'S HEART WAS ELEVATED. ELEVATED TEMPRATURE OF 103 WAS ALSO NOTED WELL. PT IS LAYING IN BED RESTING IN BED. TYELENOL ADMINISTERED FOR FEVER, [place] DECORATOR NOTIFIED OF ELEVATED HEART RATE, ORDERED RECEIVED. TEMP WAS LOWERED AFTER TYLENOL ADMINISTERED ANF WITH THE USE OF ICE. ASSESSMENT COMPPLETED AND DOCUMENTED, SCHEDULED MEDS ADMINISTERED TO PT. TOLERATED PO INTAKE. LATER ON DURING SHIFT, IT WAS NOTED THAT PT'S HEART RATE WAS STARTING TO GET ELEVATED, TEMP CHECKED AND IT WAS 99.5. TYLENOL ADMINISTERED. CONITNUE TO MONITOR PT. NO FURTHER NEEDS AT THIS TIME.
[2019-11-18 08:50] LABS: HEMATOCRIT 36.1 % (42.0-52.0); HEMOGLOBIN 11.8 gm/dL (14.0-18.0); MCH 27.8 pg (26.0-34.0); MCHC 32.7 g/dL (28.0-37.0); RBC 4.25 mil/uL (4.50-6.00); RDW 17.7 % (10.5-14.5); WBC 8.8 thou/uL (4.0-11.0)
[2019-11-18 09:04] LABS: CREATININE 1.8 mg/dL (0.7-1.3); MAGNESIUM 1.6 mg/dL (1.8-2.4); POTASSIUM 4.4 mmol/L (3.5-5.1)
--- NOTE | 2019-11-18 12:40 | NUR ---
WOUND CONSULT; A STAGE TWO PRESSURE ULCER TO THE SACRUM. BEEFY RED TISSUE WITH SOME BRUISING TO THE PERIWOUND. SCANT DRAINAGE. NO S/S OF INFECTION. WOUND MEASURES 1.5 X 1.0 X 0.1 TODAY. IT IS LIKELY TO EVOLVE TO A LARGER WOUND. RECOMMENDATIONS; 1- TURN Q2H 2- LOW AIR LOSS PUMP 3-XEROFORM,BORDER FOAM DAILY/PRN DISCUSSED WITH SILVA
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
--- NOTE | 2019-11-18 15:23 | NUR ---
CT of abdomen completed. Dr Lawrence notified casemgt patient with need for urologist and need to transfer. SP with patient who reports he is not going to transfer. He has urologist he sees at [facility] on outpatient basis but does not wannt to be a patient at [facility]. Offered options of [facility] and patient refuses. Called dtr and left message. Updated phys. Cont tx until can sp with dtr or patient agreeable.
--- NOTE | 2019-11-18 16:41 | NUR ---
ASSUMMED PT CARE AT APPROXIMATELY 0700. PT A&O X4, PT FORGETFUL AND CONFUSED AT TIMES. FREQUENT REORIENTATION PROVIDED. ASSESSMENT CHARTED. FALL PRECAUTIONS IN PLACE. PT DENIES HAVING CHEST PAIN. PT HAS SOB ON EXERSION. O2 SAT STABLE. PT DENIES HAVING ACUTE PAIN. INFORMED DR. GREEN OF PT'S RASH. NEW ORDERS RECEIVED AND IMPLEMENTED. INFORMED DR. VILLA OF PT'S CT RESULT. DR. VILLA STATED UNDERSTANDING. DR. VILLA STATED PT NEEDED TO TRANSFER TO SEE A UROLOGIST. INFORMED CASE MANAGEMENT. VITAL SIGNS STABLE. BLOOD SUGAR STABLE. PT COMFORTABLE IN BED. PT DENIES HAVING FURTHER CONCERNS.
--- NOTE | 2019-11-18 17:24 | NUR ---
spoke with dtsurinder Salguero reviewed need to transfer for urology. She reports her father has never listened to her recommendations but she will call him in room and discuss. She reports he has been at [facility] and [facility] before but she does not know if good experience. She reports he just always wants [facility] and will not want to transfer. She is aware of the need to transfer. She will call patient in room. She works tomorrow and cannot be on phone. She will call caset at 12:[address] Lawrence to round and discuss with patient in am.
--- NOTE | 2019-11-19 02:37 | NUR ---
patient aox3 confused and forgetful. patient was agitated this shift called shipping assistant. new order of haldol. pain controlled this shift. patient turned q 2 hours.patient refused midnight vital signs.call light and personal item within reach.fall precaution in place. patient in bed awake breathing regular and unlaboured.
[2019-11-19 04:00] VITALS: BP 123/67
[2019-11-19 06:49] LABS: HEMOGLOBIN 11.2 gm/dL (14.0-18.0); MCH 27.2 pg (26.0-34.0); RBC 4.12 mil/uL (4.50-6.00); RDW 18.4 % (10.5-14.5)
[2019-11-19 07:04] LABS: CALCIUM 8.1 mg/dL (8.5-10.1); CREATININE 1.6 mg/dL (0.7-1.3); MAGNESIUM 1.6 mg/dL (1.8-2.4); POTASSIUM 4.1 mmol/L (3.5-5.1)
[2019-11-19 07:48] VITALS: BP 136/76
[2019-11-19 11:31] VITALS: BP 147/94
[2019-11-19] MEDS ORDERED: MERREM500 MG IV (14:13)
[2019-11-19] MEDS ORDERED: LANTUS SUBQ (14:23)
[2019-11-19 15:09] VITALS: BP 156/83
--- NOTE | 2019-11-19 15:12 | NUR ---
PT TRANSFERRING TO [facility] FOR UROLOGY CARE. ARRANGED TRANSPORTATION BY AMBULANCE WITH [facility] FOR 1530 TODAY. SW TO NOTIFY PT'S FAMILY AND UNIT NOTIFIED.
--- NOTE | 2019-11-19 16:29 | NUR ---
spoke with patient this am and he wants to transfer to [facility]. Sp with merchandising coordinator and faxed peritent information, uploaded disc to cloud. [facility] accepting of patient for urology needs. Dr Morgan accepting of patient at [facility]. Sp with s/o and dtr of planned transport and time. All in agreement. Chart copied completed and dc orders faxed.
--- NOTE | 2019-11-19 16:35 | NUR ---
ASSUMED CARE PT SHIFT CHANGE. ASSESSMENTS CHARTED.MEDS GIVEN PER JUL. PT ALERT, ORIENTED, BUT CONFUSED AT TIMES. VSS. NO C/O PAIN. ST ON TELE LOW 100S. NO FEVER. GUSTAFSON IN PLACE. PT TO TX TO [facility] FOR UROLOGY. PT BECAME AGITATED TOWARDS STAFF, REFUSED TO WEAR TELE. PHYSICIAN NOTIFED, ORDER RECEIVED TO HAVE TELE OFF. REPORT CALLED TO KENNETH LIRA. PT LEFT UNIT AT APPROX 1640 BY AMBULANCE. ALL BELONGNGINGS PACKED AND TAKEN WITH PATIENT.
--- NOTE | 2019-11-20 07:27 | HC ---
[facility] [place] [address] CONSULTATION Name: AMAYA STILES Room #: 205-[facility]..#: [id number] Admission: 11/14/19 Attend Phys: Bere Edmond MD Discharge: 11/19/19 Date of : 60 Report #: [id number] THIS REPORT FOR: cc: [facility] - Clinic physician unknown [facility] - Clinic physician unknown Jolanta Baires MD ~ CC: Bere RODRIGUEZ unknown DATE OF SERVICE: 11/19/2019 REASON FOR CONSULTATION: Acute kidney injury. REASON FOR PRESENTATION: Confusion and fatigue. HISTORY OF PRESENT ILLNESS: This is a 59-year-old who arrived to the hospital on 10/15/2019 with confusion and fatigue. Initial history was very limited. The patient was very confused at that time and he refused to give any details; however, over the last few days, the patient's symptoms started to improve. He was treated for urinary tract infections. He had admitted to fever and chills on his presentation. He also reported decreased urine output. He carries a diagnosis of diabetes mellitus and nephrolithiasis. He tells me that he is followed by Urology at [facility] and he is aware that he had some issues with stones and he was supposed to follow up with them; however, he lost to follow up because of the current COVID-19 status. On presentation to the Emergency Room, the patient was found to have a creatinine of 1.6 that had worsened up to 1.9 mandating a Nephrology consultation. Prior to that and back in September of this year, the patient's creatinine was 0.7. I was consulted to manage the patient's acute kidney injury. The patient was found on the CT scan to have left-sided hydronephrosis due to a left UP junction stenosis. The patient currently tells me that he does not have any active urinary symptoms. Urine cultures are still pending. He had significant leukocytosis on his presentation. His creatinine has trended down with the insertion of [place] catheter and IV fluid to 1.6. He is in the process of being transferred to another hospital where Urology service is available. PAST MEDICAL HISTORY: 1. Nephrolithiasis. 2. Hypertension. 3. Diabetes mellitus. 4. Hypothyroidism. 5. Colon injury back in 2003. 6. Remote history of weight loss surgery. 7. Gallbladder surgery. 8. 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 [address] [address] CONSULTATION Name: AMAYA STILES Room #: 205-[facility]#: [id number] Admission: 11/14/19 Attend Phys: Bere Edmond MD Discharge: 11/19/19 Date of : 60 Report #: [id number] MEDICATIONS: 1. Levothyroxine. 2. Baclofen. 3. Losartan. 4. Naproxen. ALLERGIES: MORPHINE. SOCIAL HISTORY: Denies drug or alcohol abuse. FAMILY HISTORY: Hypertension. REVIEW OF SYSTEMS: GENERAL: Significant for fever and chills. CARDIOVASCULAR: No chest pain or palpitation. PULMONARY: No cough or hemoptysis. GASTROINTESTINAL: Decreased oral intake. GENITOURINARY: Significant for frequency and urgency and decreased urine output. NEUROLOGICAL: Significant for confusion. PHYSICAL EXAMINATION: GENERAL: The patient is awake, alert, but seems to be somewhat sluggish. VITAL SIGNS: Blood pressure is 136/76, temperature is 36.3, pulse rate is 95. HEAD AND NECK: No jugular venous distention. CHEST: No crackles. CARDIOVASCULAR: No rub. ABDOMEN: Soft, nontender. No costovertebral angle tenderness. EXTREMITIES: Lower extremities, +1 edema. LABORATORY VALUES: Sodium 136, potassium 4.1, BUN is 23, creatinine is 1.6. Magnesium is 1.6. CT scan reviewed and it showed left mild hydronephrosis. ASSESSMENT, IMPRESSION AND PLAN: 1. Acute kidney injury. 2. Obstructive nephrolithiasis in the left side with left-sided hydronephrosis. 3. Diabetes mellitus. 4. Hypertension. 5. The patient's acute kidney injury is related to obstructions and nonsteroidal anti-inflammatory medication usage. 6. Continue with IV fluid. 7. Pending cultures. 8. The patient will need urological evaluation [place] [address] CONSULTATION Name: AMAYA STILES Room #: 205-[facility] .R.#: [id number] Admission: 11/14/19 Attend Phys: Bere Edmond MD Discharge: 11/19/19 Date of : 60 Report #: [id number] transferred to [facility] where his urologist is practicing. This was discussed with his nurse and with Dr. Lawrence. We will continue to follow. <ELECTRONICALLY SIGNED> By: Jolanta Baires MD 11/20/19 0727 [id number] Jolanta Baires MD /nt
== END 2019-11-19 16:40 | disposition short-term general hospital (02) | DRG 871 ==
LOC: ER 20:54 → ICU 22:33 → EROBS 22:33 → ICU 23:54 → 2N 11-15 00:02 → ICU 11-15 02:28 → 2N 11-17 14:20
PROVIDERS: Emergency Medicine; Internal Medicine; Internal Medicine Pulmonary Disease; Nurse Practitioner Family; Physician Assistant; ADMIT Hospitalist; ATTEND Hospitalist
PROC: 02HV33Z Insertion of Infusion Device into Superior Vena Cava, Percutaneous Approach (ICD-10-PCS; principal; 2019-11-16)
DX: A41.9 Sepsis, unspecified organism (principal); G93.41 Metabolic encephalopathy; E11.10 Type 2 diabetes mellitus with ketoacidosis without coma; J96.01 Acute respiratory failure with hypoxia; G82.20 Paraplegia, unspecified; N17.9 Acute kidney failure, unspecified; N13.6 Pyonephrosis; I42.9 Cardiomyopathy, unspecified; Z68.41 Body mass index [BMI] 40.0-44.9, adult; R65.20 Severe sepsis without septic shock; E11.22 Type 2 diabetes mellitus with diabetic chronic kidney disease; E87.5 Hyperkalemia; E83.42 Hypomagnesemia; E03.9 Hypothyroidism, unspecified; K21.9 Gastro-esophageal reflux disease without esophagitis; E66.01 Morbid (severe) obesity due to excess calories; E83.51 Hypocalcemia; N18.9 Chronic kidney disease, unspecified; Z20.828 Contact with and (suspected) exposure to other viral communicable diseases; Z88.6 Allergy status to analgesic agent; Z87.442 Personal history of urinary calculi; Z90.49 Acquired absence of other specified parts of digestive tract; Z86.718 Personal history of other venous thrombosis and embolism
CPT/HCPCS: 10078; 10081; 10203